=== PATIENT | female | born 1975 | race Caucasian/White ===

== ENCOUNTER 2020-09-25 10:16 | Outpatient (REF) | payer MEDICARE, MEDICAID, SELFPAY ==
--- NOTE | 2020-09-25 | MR_ITS ---
EXAMINATION: MR ABDOMEN WITHOUT CONTRAST CLINICAL INFORMATION: Targeted acute pancreatitis without infection or necrosis. COMPARISON: Ultrasound abdomen 11/24/2018 TECHNIQUE: MR abdomen is performed without gadolinium contrast. Additional MRCP sequence is included. FINDINGS: LUNG BASES: The visualized lung bases are unremarkable. LIVER, GALLBLADDER, AND BILIARY TREE: The liver is normal in size, smooth in contour, and normal in signal. No focal hepatic lesion or biliary ductal dilatation is present. The gallbladder is unremarkable with no evidence of gallbladder wall thickening, or obvious pericholecystic inflammatory changes. The common duct is normal in caliber. No filling defect or stricture or displacement. PANCREAS: The pancreas is normal in size and contour and signal. There is no pancreatic ductal distention. The pancreatic duct is normal in caliber and shows no ectasia, beading, or displacement. No peripancreatic inflammatory changes or retroperitoneal effusion. SPLEEN: Unremarkable. ADRENAL GLANDS: Unremarkable. KIDNEYS AND URETERS: The kidneys are normal in size and shape. No hydronephrosis. No perinephric stranding. GASTROINTESTINAL TRACT: No bowel obstruction. No ascites or fluid collection. ABDOMINAL WALL: No significant hernia is appreciated. LYMPH NODES: No lymphadenopathy. VASCULAR: Unremarkable. OSSEOUS STRUCTURES: Marrow signal normal. MR/MR abdomen wo con IMPRESSION: 1. Unremarkable pancreas. Normal pancreatic duct. No peripancreatic inflammatory changes. 2. No biliary ductal dilatation.
== END 2020-09-25 10:17 | disposition home or self-care (01) ==
LOC: HO.MRI 10:16
PROVIDERS: Visit Provider Internal Medicine Gastroenterology
DX: K85.30 Drug induced acute pancreatitis without necrosis or infection (principal)
CPT/HCPCS: 74181

== ENCOUNTER → 2020-10-26 08:04 | Outpatient (REF) | payer MEDICARE, MEDICAID, SELFPAY ==
--- NOTE | 2020-10-26 | NM_ITS ---
EXAMINATION: RADIONUCLIDE SOLID FOOD GASTRIC EMPTYING 4-HOUR STUDY CLINICAL INFORMATION: Vomiting. COMPARISON: No previous gastric emptying study is available for comparison. TECHNIQUE: A standard meal consisting of 4 oz of Egg Beaters brand equivalent tagged with 800 microcuries Tc-99m Sulfur Colloid, 8 oz water and 2 slices of toast with jelly was administered orally to the patient. Images were obtained using a dual head gamma camera in the anterior and posterior projections over of the stomach immediately post ingestion and at hourly intervals up to 4 hours post ingestion. The anterior and posterior counts at each time interval were averaged using the geometric mean and expressed as percentage of the immediate post ingestion counts. FINDINGS: There is good visualization of activity in the stomach immediately post ingestion. As the study progresses there is visualization of some progressively increasing small bowel activity, but at the end of the study most of the activity is still retained in the stomach at 4 hours. Retention in the stomach at each time interval was: 1 hour 100% (normal 37%-90%) 2 hours 85% (normal 30%-60%) 3 hours 7% 4 hours 51% (normal 0%-10%) NM/NM gastric emptying study IMPRESSION: Abnormal study. There is markedly abnormal retention of solid food in the stomach at 4 hours.
== END ==
LOC: HO.NUCMED 08:04
PROVIDERS: Visit Provider Internal Medicine Gastroenterology
DX: R11.0 Nausea (principal)
CPT/HCPCS: 78264; A9541

== ENCOUNTER 2021-03-24 15:27 | Emergency (ER) | payer MEDICARE, MEDICAID, SELFPAY ==
[2021-03-24 15:34] VITALS: BP 122/80; BP 130/92; PULSE 3; RESP 20; TEMP 36.5; O2SAT 95; BMI 25.0
--- NOTE | 2021-03-24 15:40 | ED_ITS ---
HPI - Overdose General Chief Complaint: ETOH/Substance Use Stated Complaint: overdose/narcan Time Seen by Provider: 03/24/21 15:40 History of Present Illness HPI Narrative: This is 46 years old the female brought here by ambulance she was found unresponsive in the car with heroin in the car, she woke up with a sternal rub, she arrived awake and alert denies SI denies HI. There was a baby 3 years old in the car as well taken by the police MD complaint: accidental overdose Onset (ago): minute(s) (30) Context: Accidental Overdose: wanted to get high Treatments Prior to Arrival: none Related Data Allergies Allergy/AdvReac Type Severity Reaction Status Date / Time acetaminophen [From TYLENOL] Allergy Intermediate HEP C Unverified 07/20/20 18:44 sulfamethoxazole Allergy Intermediate SWELLING Unverified 07/20/20 18:44 [From BACTRIM] trimethoprim [From BACTRIM] Allergy Intermediate SWELLING Unverified 07/20/20 18:44 doxycycline [DOXYCYCLINE] Allergy Mild PROLONGED Unverified 07/20/20 18:44 DIARRHEA levofloxacin [From LEVAQUIN] Allergy Unknown RASH Unverified 07/20/20 18:44 Sulfa (Sulfonamide Allergy Unknown UNKNOWN Unverified 07/20/20 18:44 Antibiotics) [SULFA (SULFONAMIDE ANTIBIOTICS)] Review of Systems Review of Systems: Yes all other systems are reviewed and are negative Cardiovascular: Cardiovascular: Reports no additional cardiovascular complaints Respiratory: Respiratory: Reports no additional respiratory complaints [facility] Social History Social History Advance Directives: No Advance Directives Information Provided: No Physical Exam Vital Signs: Vital Signs: Last Vital Signs Temp 97.7 F 03/24/21 15:34 Pulse 3 L 03/24/21 15:34 Resp 20 03/24/21 15:34 BP 130/92 H 03/24/21 15:34 Pulse Ox 95 03/24/21 15:34 Body Mass Index 25.0 Const: Other: She is awake and alert in not acute distress General: cooperative, alert, awake and anxious; No acute distress Orientation/consciousness: oriented to person, oriented to place, oriented to time and patient oriented x3 HENMT: Head: Yes normal to inspection Eyes: General: appearance normal, both eyes and all related structures Visual De La Vega: normal visual de la vega by confrontation Neck: Neck: Yes normal visual inspection and Yes full ROM Chest: Chest palpation & inspection: normal inspection of the chest and normal palpation of entire chest wall Resp: Effort & Inspection: normal respiratory effort and able to speak in complete sentences Cardio: Jugular venous distension: no JVD Rate: regular rate Rhythm: regular rhythm GI: Inspection: Yes normal to inspection Auscultation: normal bowel sounds Skin: General skin exam: no rashes or lesions noted Rashes: no rashes Neuro: General: oriented to person, oriented to place, oriented to time, patient oriented x3 and moves all extremities Extrem: General: Yes normal to inspection, Yes full ROM and Yes capillary refill normal MDM - Overdose Medical Records Medical records narrative: Patient these no SI no HI does no want detox . At this point will observe the patient for 1 hour if she remains stable she will be discharged home Discharge Plan Discharge Clinical Impression: Opioid abuse Patient Disposition: Home, Self-Care Instructions: Opioid Use Disorder (ED) Interventions: ED Discharge Assessment Last Done: 03/24/21 16:50 Discharge Date/Time: 03/24/21 16:51
== END 2021-03-24 16:51 | disposition home or self-care (01) ==
PROVIDERS: Emergency Provider Emergency Medicine
DX: F11.10 Opioid abuse, uncomplicated (principal); T40.1X1A Poisoning by heroin, accidental (unintentional), initial encounter; R40.4 Transient alteration of awareness; Y92.810 Car as the place of occurrence of the external cause
CPT/HCPCS: 99283

== ENCOUNTER 2021-10-19 09:30 | Outpatient (RCR) | payer MEDICARE, MEDICAID, SELFPAY ==
--- NOTE | 2021-10-17 09:50 | PC.NURSE ---
Patient did not show up to the program this morning. Called patient at 0930 and 0945. Patient did not answer her phone and unable to leave a message as her mailbox is full. Team is aware.
--- NOTE | 2021-10-17 10:21 | PC.NURSE ---
Called Violeta again at 10:00 and 10:15, no answer and unable to leave a message d/t voicemail being full. Called her emergency contact patient's daughter Karishma who stated she spoke to her mother yesterday and she sounded like she was doing well. Karishma stated she will call her mother. Violeta just called me and stated she overslept as she hurt her back and took a muscle relaxer Tizanidine that is prescribed form the hospital, stated she is not used to taking this medicine. Plans on coming to the program tomorrow.
--- NOTE | 2021-10-18 14:10 | PC.NURSE ---
Case opened in treatment team
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
[2021-10-18 15:11] VITALS: BMI 29.9
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
--- NOTE | 2021-10-19 13:35 | PC.NURSE ---
Called clinical director Manisha Lui at [facility] and left several messages on her voicemail to call me back to verify patient medications. Awaiting a call back. Also called Violeta and left a message for her to call me back regarding the need to confirm her medication list. Awaiting a call back.
--- NOTE | 2021-10-22 09:26 | PC.NURSE ---
client called out sick
--- NOTE | 2021-10-22 13:05 | PC.NURSE ---
Patient called out sick today. Unable to reach patients program clinical director Manisha Lloyd to confirm patient medications. Called patient to f/u and patient stated she is at [facility] as she does not feel well. Patient did not sound well and stated she has been coughing and sounded as if she is losing her voice. Patient will keep us updated.
--- NOTE | 2021-10-23 09:30 | PC.NURSE ---
Client did not come in and did not call. I called her and could not leave a message because the mailbox was full.
--- NOTE | 2021-10-23 10:04 | PC.NURSE ---
I called the clients emergency contact, her daughter Karishma, when client did not answer phone call. Karishma states that her mother is very sick. She went to the er yesterday and was dx with MAITE. Karishma hasn't spoke with her yet today. I informed Karishma that if her mom can not attend this week will have to discharge her and she can call for an intake when she is feeling better.
--- NOTE | 2021-10-29 14:13 | PC.NURSE ---
I spoke with the client re absence from the program. She continues to experince symptoms of COVID . I explained that she will be discharge and can call for another intake when she feels better. She agrees with this plan
== END 2021-10-30 07:07 | disposition home or self-care (01) ==
LOC: HO.PHPA 09:30
PROVIDERS: PCP Family Medicine; Visit Provider Psychiatry & Neurology Psychiatry
DX: F33.2 Major depressive disorder, recurrent severe without psychotic features (principal); F43.12 Post-traumatic stress disorder, chronic; F90.9 Attention-deficit hyperactivity disorder, unspecified type; F14.21 Cocaine dependence, in remission; F10.21 Alcohol dependence, in remission; F11.20 Opioid dependence, uncomplicated
CPT/HCPCS: 90791; 90853

== ENCOUNTER 2021-11-28 10:00 | Outpatient (RCR) | payer MEDICARE, MEDICAID, SELFPAY ==
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
[2021-11-07 13:31] VITALS: BMI 29.9
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
--- NOTE | 2021-11-13 09:42 | PC.NURSE ---
The client called out sick
--- NOTE | 2021-11-14 13:18 | HO.PHPPROGNO ---
Subjective Subjective Date of Service: 11/14/21 Reason For Visit: Depression, PTSD Guardianship: No Medical Problems Affecting Mental Status: No Interim History: Client reports she is not doing too good today . When asked to elaborate, she reports it is related to several interpersonal issues in the place where she is living. Client reports she is looking forward to getting to leave house this afternoon, as she has an appointment with suboxone provider. Denies any current thoughts of harm to self or others, no safety concern at this time. Reports Trileptal is making her feel ?tired ?in the morning, requesting did take it all at bedtime. Reports decreased mood lability. Continues with some anxiety and depressive sx. Medication Compliance: Yes Side effects from medications: Yes (sedation r/t am dose of trileptal.) Attending Groups: Yes Review of Systems Acute medical concerns: No Medical Review of Systems: unchanged Review of Systems Review of Systems Yes all other systems are reviewed and are negative Mental Status Exam Mental Status Exam Narrative: Well-developed, well-nourished female, in NAD. No involuntary movements noted, motor activity calm. Patient Appearance: Well Grooomed and Appropriate Patient Orientation: Person, Place, Time and Situation Level of Consciousness: Awake, Appropriate and Alert Patient Behavior: Appropriate, Cooperative and Good Eye Contact Mood Description: Appropriate, Depressed and Anxious Affect Description: Appropriate, Depressed and Anxious Patient Cognition Impaired: No Ability to Follow Directions: Excellent Speech Pattern: Clear, Appropriate, Spontaneous Speech and Coherent Memory Description: Intact Hallucinations: None Delusions: Not Present Thought Process: Intact, Goal Oriented and Linear Thought Content: positive for Intact, positive for Goal Oriented, positive for Linear and positive for Suicidal Ideation (Attempted suicide several months ago, denies any active SI today.) Depressive Symptoms: Increased Anxiety, Diff. Making Decisions, Increased Irritability, Difficulty Sleeping, Feelings of Worthlessness, Feelings of Guilt, Unhappiness, Low Self Esteem and Difficulty Concentrating Judgement: Fair Diagnostics Vital Signs (24Hr): BMI result Body Mass Index 29.9 Assessment & Plan Assessment & Plan (1) Major depressive disorder, recurrent severe without psychotic features: Status: Acute Code(s): F33.2 - Major depressive disorder, recurrent severe without psychotic features Assessment and Plan: Client reports continues with dysphoric mood, does report it is slowly improving. Reports some decrease in mood lability since adding Trileptal. Reports feeling tired in the morning, wishing to have Trileptal switched to bedtime only dosing. Reports continues with interpersonal conflicts, feeling triggered at times in her residential program. Denies any active SI at this time, no safety concern at this time. (2) Post-traumatic stress disorder, chronic: Status: Acute Code(s): F43.12 - Post-traumatic stress disorder, chronic Assessment and Plan: Continues with some PTSD symptoms, including irritability, hypervigilance. Reports she feels she is better able to understand symptoms. (3) Opioid use disorder, severe, in early remission, in controlled environment, dependence: Status: Acute Code(s): F11.21 - Opioid dependence, in remission Assessment and Plan: Continues to work on her sobriety. Receives Suboxone daily, which is working to help reduce cravings and withdrawal symptoms. (4) Alcohol use disorder, severe, in sustained remission, in controlled environment: Status: Acute Code(s): F10.21 - Alcohol dependence, in remission Assessment and Plan: Continues abstinence from alcohol, reports she is currently looking for a new sponsor. Discussed recovery, tools of sobriety, utilizing a support network. (5) Cocaine use disorder, severe, in early remission, in controlled environment: Status: Acute Code(s): F14.21 - Cocaine dependence, in remission Assessment and Plan: Reports continues to work on sobriety regarding cocaine, remains abstinent at this time. Assessment and Plan: Client reports medications appear to be helping somewhat, although she feels her medications need to be increased. She does report Trileptal is making her drowsy in the morning, requesting that full-dose be given at bedtime. She plans to discuss her Abilify as well as ADHD medication with outpatient providers, as she wishes to have both increased. We discussed increasing Abilify while here, and she stated she would prefer to speak with her outpatient provider. PLAN: 1. Change Trileptal from 300 mg in the a.m., 600 mg at bedtime, to full dose being 900 mg at bedtime. Clinical director of her residential program has been notified via secure email of the change. 2. Continue with current plan of care. 3. Follow-up as per protocol. Patient educated on: diagnosis, medication risk/benefits, substance abuse and therapeutic strategies Informed Consent: understands Reason for contiued partial hosp. stay Substantial Risk for: harm to self, inability to function and med/psych decompensation Certification I certify that partial hospital treatment is medically necessary due to the symptoms and problems resulting from the patient's mental illness and the failure to treat the patient at the partial hospital level of care would likely result in the patient requiring inpatient psychiatric care which could not be prevented at a less intensive level of care. I spent ____20__ minutes with the patient and/or on the patient floor today, greater than?50% of which was spent counseling/coordinating care. Discharge Plan Discharge Attending provider: Baldemar Bourgeois Primary Care Provider: Buddy Ag Medications: New oxcarbazepine [Trileptal] 300 mg tablet See Rx Instructions .ROUTE .COMPLEX Qty: 21 RF: 0 No Action clonazepam 0.5 mg Tablet 0.5 mg PO BID RF: 0 buprenorphine-naloxone 8-2 mg Film 1 film SUBLINGUAL BID RF: 0 clonidine HCl 0.1 mg Tablet 0.1 - 0.2 mg PO TID PRN (Reason: Anxiety) RF: 0 gabapentin 600 mg Tablet 600 mg PO TID RF: 0 tizanidine 2 mg Tablet 2 mg PO TID PRN (Reason: Muscle Spasm) RF: 0 clonidine HCl 0.2 mg Tablet 0.2 mg PO TID RF: 0 dextroamphetamine-amphetamine [Adderall XR] 20 mg Capsule,Extended Release 24hr 20 mg PO BID RF: 0 trazodone 100 mg Tablet 200 mg PO BEDTIME RF: 0 pantoprazole 40 mg Tablet,Delayed Release (Dr/Ec) 40 mg PO BID RF: 0 albuterol sulfate [Ventolin HFA] 90 mcg/actuation Hfa Aerosol Inhaler 1 inh INHALATION QID PRN (Reason: Shortness Of Breath) RF: 0 ondansetron 4 mg Tablet,Disintegrating 4 mg PO DAILY PRN (Reason: Nausea) RF: 0 aripiprazole 15 mg Tablet 15 mg PO DAILY RF: 0 budesonide-formoterol [Symbicort] 160-4.5 mcg/actuation Hfa Aerosol Inhaler 2 puff INHALATION BID RF: 0 Referrals: Buddy Ag MD [Primary Care Provider] - 1 Week Stand Alone Forms: Patient Portal Discharge page Telehealth Telehealth Location of provider rendering services: practice address Location of patient: address on file Patient Identification confirmed using: Name, : Yes Telehealth method: video Patient verbally consented to treatment: Yes Patient verbally consented to billing insurance company: Yes Patient informed of any privacy concerns related to visit: Yes Time spent with patient (mins): 20
--- NOTE | 2021-11-22 15:21 | HO.PHPPROGNO ---
Subjective Subjective Date of Service: 11/22/21 Reason For Visit: Depression, PTSD Guardianship: No Medical Problems Affecting Mental Status: No Interim History: Violeta reports feeling ?very depressed today . Denies any thought of harm to self or others, no safety concern at this time. Taking all medications as prescribed. Currently on a taper down with Klonopin and gabapentin. Requesting Wellbutrin. Medication Compliance: Yes Side effects from medications: No Attending Groups: Yes Review of Systems Acute medical concerns: No Medical Review of Systems: unchanged Review of Systems Review of Systems Yes all other systems are reviewed and are negative Constitutional: Reports no additional constitutional complaints Mental Status Exam Mental Status Exam Narrative: Well-developed, well-nourished female, in NAD. No involuntary movements noted, motor activity calm. Patient Appearance: Well Grooomed and Appropriate Patient Orientation: Person, Place, Time and Situation Level of Consciousness: Awake, Appropriate and Alert Patient Behavior: Appropriate, Cooperative and Good Eye Contact Mood Description: Appropriate, Depressed (Reports she feels her depression has worsened, also compulsive eating related to it.) and Anxious Affect Description: Appropriate, Depressed and Anxious Patient Cognition Impaired: No Ability to Follow Directions: Excellent Speech Pattern: Clear, Appropriate, Spontaneous Speech and Coherent Memory Description: Intact Hallucinations: None Delusions: Not Present Thought Process: Intact, Goal Oriented and Linear Thought Content: positive for Intact, positive for Goal Oriented and positive for Linear Depressive Symptoms: Increased Anxiety, Diff. Making Decisions, Increased Irritability, Difficulty Sleeping, Feelings of Worthlessness, Feelings of Guilt and Low Self Esteem Judgement: Fair Diagnostics Vital Signs (24Hr): BMI result Body Mass Index 29.9 Assessment & Plan Assessment & Plan (1) Major depressive disorder, recurrent severe without psychotic features: Status: Acute Code(s): F33.2 - Major depressive disorder, recurrent severe without psychotic features Assessment and Plan: Client reports increased depression along with compulsive eating. Denies any thought of harm to self or others, no safety concern at this time. Requesting Wellbutrin, which she has taken off and on in her past. She reports that she is taking mood stabilizer Trileptal as prescribed, but feels that she needs Wellbutrin to help lift her out of depression. She also continues with trazodone at bedtime. She reports that this is mostly for sleep. (2) Post-traumatic stress disorder, chronic: Status: Acute Code(s): F43.12 - Post-traumatic stress disorder, chronic Assessment and Plan: Continues with PTSD symptoms, reports they are more manageable at this time. (3) Opioid use disorder, severe, in early remission, in controlled environment, dependence: Status: Acute Code(s): F11.21 - Opioid dependence, in remission Assessment and Plan: Continues with Suboxone therapy, maintains abstinence at this time. Reports active in recovery program. (4) Cocaine use disorder, severe, in early remission, in controlled environment: Status: Acute Code(s): F14.21 - Cocaine dependence, in remission Assessment and Plan: Maintained abstinence at this time. Denies any concerns regarding triggers/cravings. (5) Alcohol use disorder, severe, in sustained remission, in controlled environment: Status: Acute Code(s): F10.21 - Alcohol dependence, in remission Assessment and Plan: Remains abstinent at this time, actively engaged in therapy program, including 12 step meetings. (6) ADHD: Status: Acute Code(s): F90.9 - Attention-deficit hyperactivity disorder, unspecified type Assessment and Plan: Currently receives Adderall XR are 20 mg b.i.d.. Reports that is working fairly well. States that she continues to struggle somewhat with attention. Assessment and Plan: Client reports dysphoric mood, compulsive eating related to depression. Requesting that she be re-initiated with Wellbutrin, as this has worked for her in the past. 1. Start Wellbutrin SR 100mg daily. Fourteen day supply sent to pharmacy. 2. Continue with current [facility] plan of care. 3. Discharge when stabilized. Patient educated on: diagnosis, medication risk/benefits, substance abuse and therapeutic strategies Informed Consent: understands Reason for contiued partial hosp. stay Substantial Risk for: harm to self, inability to function and med/psych decompensation Certification I certify that partial hospital treatment is medically necessary due to the symptoms and problems resulting from the patient's mental illness and the failure to treat the patient at the partial hospital level of care would likely result in the patient requiring inpatient psychiatric care which could not be prevented at a less intensive level of care. I spent minutes with the patient and/or on the patient floor today, greater than?50% of which was spent counseling/coordinating care. Discharge Plan Discharge Attending provider: Baldemar Bourgeois Primary Care Provider: Buddy Ag Medications: New oxcarbazepine [Trileptal] 300 mg tablet See Rx Instructions .ROUTE .COMPLEX Qty: 21 RF: 0 bupropion HCl [Wellbutrin SR] 100 mg tablet sustained-release 12 hr 100 mg PO DAILY 14 Days Qty: 14 RF: 0 No Action clonazepam 0.5 mg Tablet 0.5 mg PO BID RF: 0 buprenorphine-naloxone 8-2 mg Film 1 film SUBLINGUAL BID RF: 0 clonidine HCl 0.1 mg Tablet 0.1 - 0.2 mg PO TID PRN (Reason: Anxiety) RF: 0 gabapentin 600 mg Tablet 600 mg PO TID RF: 0 tizanidine 2 mg Tablet 2 mg PO TID PRN (Reason: Muscle Spasm) RF: 0 clonidine HCl 0.2 mg Tablet 0.2 mg PO TID RF: 0 dextroamphetamine-amphetamine [Adderall XR] 20 mg Capsule,Extended Release 24hr 20 mg PO BID RF: 0 trazodone 100 mg Tablet 200 mg PO BEDTIME RF: 0 pantoprazole 40 mg Tablet,Delayed Release (Dr/Ec) 40 mg PO BID RF: 0 albuterol sulfate [Ventolin HFA] 90 mcg/actuation Hfa Aerosol Inhaler 1 inh INHALATION QID PRN (Reason: Shortness Of Breath) RF: 0 ondansetron 4 mg Tablet,Disintegrating 4 mg PO DAILY PRN (Reason: Nausea) RF: 0 aripiprazole 15 mg Tablet 15 mg PO DAILY RF: 0 budesonide-formoterol [Symbicort] 160-4.5 mcg/actuation Hfa Aerosol Inhaler 2 puff INHALATION BID RF: 0 Referrals: Buddy Ag MD [Primary Care Provider] - 1 Week Stand Alone Forms: Patient Portal Discharge page Telehealth Telehealth Location of provider rendering services: practice address Location of patient: address on file Patient Identification confirmed using: Name, : Yes Telehealth method: video Patient verbally consented to treatment: Yes Patient verbally consented to billing insurance company: Yes Patient informed of any privacy concerns related to visit: Yes Time spent with patient (mins): 15
--- NOTE | 2021-11-28 10:07 | PC.NURSE ---
A message was left
--- NOTE | 2021-11-28 10:07 | PC.NURSE ---
left a dc message with Rama BUCHANAN
--- NOTE | 2021-11-28 12:53 | P.PNPSP_ITS ---
Subjective Subjective Date of Service: 11/28/21 Reason For Visit: Depression, PTSD Guardianship: No Medical Problems Affecting Mental Status: No Interim History: Continues with dysphoric mood, although reports much improved since started PHP. Tearful when speaking of daughters. No thoughts of harm to self or others, no safety concerns. Reports meds helping manage symptoms. Started lamotrigine last week. Remains abstinent from alcohol / substances. Utilizing 12-step support network. Medication Compliance: Yes Side effects from medications: No Attending Groups: Yes Review of Systems Acute medical concerns: No Medical Review of Systems: unchanged Review of Systems Review of Systems Yes all other systems are reviewed and are negative Constitutional: Reports no additional constitutional complaints Mental Status Exam Mental Status Exam Narrative: Well-developed, well-nourished female, in NAD. No involuntary movements noted, motor activity calm. Depressed mood and affect, although appears improving. Patient Appearance: Well Grooomed and Appropriate Patient Orientation: Person, Place, Time and Situation Level of Consciousness: Awake, Appropriate and Alert Patient Behavior: Appropriate, Cooperative and Good Eye Contact Mood Description: Appropriate and Depressed Affect Description: Appropriate and Depressed Patient Cognition Impaired: No Ability to Follow Directions: Excellent Speech Pattern: Clear, Appropriate and Coherent Memory Description: Intact Hallucinations: None Delusions: Not Present Thought Process: Intact, Goal Oriented and Linear Thought Content: positive for Intact, positive for Goal Oriented, positive for Linear and positive for Suicidal Ideation Depressive Symptoms: Feelings of Worthlessness, Feelings of Guilt, Unhappiness and Low Self Esteem Judgement: Good Diagnostics Vital Signs (24Hr): BMI result Verdana 4 Body Mass Index Verdana 4 29.9 Verdana 4 Verdana 4 Assessment & Plan Assessment & Plan (1) Major depressive disorder, recurrent severe without psychotic features: Status: Acute Code(s): F33.2 - Major depressive disorder, recurrent severe without psychotic features Assessment and Plan: Continues with dysphoric mood, although reports much improved since started PHP. Tearful when speaking of daughters. No thoughts of harm to self or others, no safety concerns. Reports meds helping manage symptoms. Started lamotrigine last week. Re expressed hope for future, plans to by car this weekend, which will enable her to see her daughters more often. (2) Post-traumatic stress disorder, chronic: Status: Acute Code(s): F43.12 - Post-traumatic stress disorder, chronic (3) Opioid use disorder, severe, in early remission, in controlled environment, dependence: Status: Acute Code(s): F11.21 - Opioid dependence, in remission (4) Alcohol use disorder, severe, in sustained remission, in controlled environment: Status: Acute Code(s): F10.21 - Alcohol dependence, in remission Assessment and Plan: Continues to utilize 12-step support network. (5) Cocaine use disorder, severe, in early remission, in controlled environment: Status: Acute Code(s): F14.21 - Cocaine dependence, in remission Plan 1. Patient appears stable for discharge from [facility]. 2. Patient to follow-up with outpatient providers going forward. 3. No medication refills needed today. Patient educated on: diagnosis, medication risk/benefits, substance abuse and therapeutic strategies Informed Consent: understands Reason for contiued partial hosp. stay Substantial Risk for: stable for discharge Certification I certify that partial hospital treatment is medically necessary due to the symptoms and problems resulting from the patient's mental illness and the failure to treat the patient at the partial hospital level of care would likely result in the patient requiring inpatient psychiatric care which could not be prevented at a less intensive level of care. I spent minutes with the patient and/or on the patient floor today, greater than?50% of which was spent counseling/coordinating care. 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 Medications: New oxcarbazepine [Trileptal] 300 mg tablet See Rx Instructions .ROUTE .COMPLEX Qty: 21 0RF Rx Instructions: 300 mg daily orally in am, and 600mg daily at bedtime. bupropion HCl [Wellbutrin SR] 100 mg tablet sustained-release 12 hr 100 mg PO DAILY 14 Days Qty: 14 0RF No Action clonazepam 0.5 mg Tablet 0.5 mg PO BID 0RF Label Comments: Confirmed medications with patient and patient's program staff Manisha Goins bereavement program coordinator who monitors patient taking medications. buprenorphine-naloxone 8-2 mg Film 1 film SUBLINGUAL BID 0RF clonidine HCl 0.1 mg Tablet 0.1 - 0.2 mg PO TID PRN (Reason: Anxiety) 0RF gabapentin 600 mg Tablet 600 mg PO TID 0RF tizanidine 2 mg Tablet 2 mg PO TID PRN (Reason: Muscle Spasm) 0RF clonidine HCl 0.2 mg Tablet 0.2 mg PO TID 0RF dextroamphetamine-amphetamine [Adderall XR] 20 mg Capsule,Extended Release 24hr 20 mg PO BID 0RF trazodone 100 mg Tablet 200 mg PO BEDTIME 0RF pantoprazole 40 mg Tablet,Delayed Release (Dr/Ec) 40 mg PO BID 0RF albuterol sulfate [Ventolin HFA] 90 mcg/actuation Hfa Aerosol Inhaler 1 inh INHALATION QID PRN (Reason: Shortness Of Breath) 0RF ondansetron 4 mg Tablet,Disintegrating 4 mg PO DAILY PRN (Reason: Nausea) 0RF aripiprazole 15 mg Tablet 15 mg PO DAILY 0RF budesonide-formoterol [Symbicort] 160-4.5 mcg/actuation Hfa Aerosol Inhaler 2 puff INHALATION BID 0RF Referrals: Buddy Ag MD [Primary Care Provider] - 1 Week Stand Alone Forms: Patient Portal Discharge page Telehealth Telehealth Location of provider rendering services: practice address Location of patient: address on file Patient Identification confirmed using: Name, : Yes Telehealth method: video Patient verbally consented to treatment: Yes Patient verbally consented to billing insurance company: Yes Patient informed of any privacy concerns related to visit: Yes Time spent with patient (mins): 20
--- NOTE | 2021-11-28 13:49 | PC.NURSE ---
Called Violeta and left messages with her to call me back regarding her discharge. Have not been able to connect with Violeta as she has left me message to call her back. Awaiting call back from Violeta.
--- NOTE | 2021-11-29 12:37 | PC.NURSE ---
Patient did not return my call to review discharge medications/status.
== END 2021-11-29 07:06 | disposition home or self-care (01) ==
LOC: HO.PHPA 10:00
PROVIDERS: PCP Family Medicine; Visit Provider Psychiatry & Neurology Psychiatry
DX: F33.2 Major depressive disorder, recurrent severe without psychotic features (principal); F43.12 Post-traumatic stress disorder, chronic; F90.9 Attention-deficit hyperactivity disorder, unspecified type; F11.20 Opioid dependence, uncomplicated; F14.21 Cocaine dependence, in remission; F10.21 Alcohol dependence, in remission; Z79.899 Other long term (current) drug therapy
CPT/HCPCS: 90791; 90853

== ENCOUNTER 2025-02-01 18:06 | Emergency (ER) | payer MEDICARE, MEDICAID, SELFPAY ==
--- NOTE | 2025-02-01 18:23 | ED.OVERDOSE ---
HPI - Overdose General Chief Complaint: Overdose Stated Complaint: od, 12 mg narcan Time Seen by Provider: 02/01/25 18:07 Source: patient and EMS Mode of arrival: EMS Limitations: other History of Present Illness ED Provider: Dr. Karena Her HPI Narrative: Patient comes to the emergency room via ambulance. According to EMS, bystanders found the patient overdose in her car. Bystanders gave 4 mg of Narcan . Patient remained unresponsive, when police department arrived, they gave to the patient ate more mg of intranasal Narcan. On arrival to the ED, patient awake, coughing, crying, uncooperative. Patient asked to go to the bathroom, undress herself left for clothes in the bathroom and threw herself neck it on the stretcher. Patient was covered and brought to her room. Patient on arrival noted to have an oxygen saturation in the high 80s. Patient awake, very somnolent but wakes up easily. Related Data Home Medications ?Medication ?Instructions ?Recorded ?Confirmed albuterol sulfate 90 mcg/actuation 1 inh inhalation QID PRN Shortness 11/07/21 11/07/21 aerosol inhaler (Ventolin HFA) Of Breath aripiprazole 15 mg tablet 15 mg PO DAILY 11/07/21 11/07/21 budesonide-formoterol HFA 160 2 puff inhalation BID 11/07/21 11/07/21 mcg-4.5 mcg/actuation aerosol inhaler (Symbicort) buprenorphine 8 mg-naloxone 2 mg 1 film sublingual BID 11/07/21 11/07/21 sublingual film clonazepam 0.5 mg tablet 0.5 mg PO BID 11/07/21 11/07/21 clonidine HCl 0.1 mg tablet 0.1 - 0.2 mg PO TID PRN Anxiety 11/07/21 11/07/21 clonidine HCl 0.2 mg tablet 0.2 mg PO TID 11/07/21 11/07/21 dextroamphetamine-amphetamine ER 20 mg PO BID 11/07/21 11/07/21 20 mg 24hr capsule,extend release (Adderall XR) gabapentin 600 mg tablet 600 mg PO TID 11/07/21 11/07/21 ondansetron 4 mg disintegrating 4 mg PO DAILY PRN Nausea 11/07/21 11/07/21 tablet pantoprazole 40 mg tablet,delayed 40 mg PO BID 11/07/21 11/07/21 release tizanidine 2 mg tablet 2 mg PO TID PRN Muscle Spasm 11/07/21 11/07/21 trazodone 100 mg tablet 200 mg PO BEDTIME 11/07/21 11/07/21 Previous Rx's ?Medication ?Instructions ?Recorded oxcarbazepine 300 mg tablet See Rx Instructions .Route 11/07/21 (Trileptal) .COMPLEX #21 tabs bupropion HCl 100 mg tablet,12 hr 100 mg PO DAILY 14 days #14 tabs 11/22/21 sustained-release (Wellbutrin SR) Allergies Allergy/AdvReac Type Severity Reaction Status Date / Time acetaminophen [From TYLENOL] Allergy Intermediate HEP C Verified 02/01/25 18:27 sulfamethoxazole Allergy Intermediate SWELLING Verified 02/01/25 18:27 [From BACTRIM] trimethoprim [From BACTRIM] Allergy Intermediate SWELLING Verified 02/01/25 18:27 doxycycline [DOXYCYCLINE] Allergy Mild PROLONGED Verified 02/01/25 18:27 DIARRHEA levofloxacin [From LEVAQUIN] Allergy Unknown RASH Verified 02/01/25 18:27 Sulfa (Sulfonamide Allergy Unknown UNKNOWN Verified 02/01/25 18:27 Antibiotics) [SULFA (SULFONAMIDE ANTIBIOTICS)] Review of Systems Review of Systems: Yes Other [facility] Past Medical History Medical History History of hepatitis C Pancreatitis Esophageal stricture HTN (hypertension) Asthma COPD (chronic obstructive pulmonary disease) Gastroparesis Surgical History History of adenoidectomy History of tonsillectomy History of delivery History of bunionectomy Social History Social History Household Members: Other Household Members Other:: residential Recovery Program Patient Tobacco Use Status: Current everyday Tobacco user Tobacco use type: Cigarette Cigarettes Per Day: 10 Advance Directives: No Advance Directives Information Provided: No Do you have a plan to hurt others: No Plan Physical Exam Vital Signs: Vital Signs: Last Vital Signs Temp 97.7 F 02/01/25 18:26 Pulse 97 02/01/25 18:26 Resp 22 H 02/01/25 18:26 BP 137/90 H 02/01/25 18:26 Pulse Ox 92 02/01/25 18:26 O2 Del Method Nasal Cannula 02/01/25 18:26 Oxygen Flow Rate 3 02/01/25 18:26 BMI result Body Mass Index 38.3 Const: Other: Appearance: Alert. combative, crying, trying to punch staff Eyes: Pupils equal, round and reactive to light. ENT: Pharynx normal. Neck: Normal inspection. Neck supple. No lymph nodes noted. No crepitus CVS: Normal heart rate and rhythm. Pulses normal. Normal S1 and S2 Respiratory: No respiratory distress. Breath sounds normal. No Wheezing. No rales Abdomen: Soft and nontender. No rigidity. No distention. Skin: Skin warm and dry. Normal skin color. Normal skin turgor. Extremities: No lower extremity edema. No Lacerations. No Rash Neuro: no slurred speech, cranial nerves 2-12 grossly intact Psych: crying, combative, trying to hit staff Course Course Course Narrative: on arrival, after 12 mg of intranasal Narcan, it was noted the patient's oxygen saturation is in 86% even though the patient is awake. Patient was put on 2 L of nasal cannula. patient combative. Patient got out of her stretcher, walked to a patient's room and stole their food tray , grabbed a bunch of food and started in her mouth. then patient started falling asleep again. Patient did not aspirate. Offered was removed from the patient. At this time, she has been awake enough to eat and is require oxygen to maintain on oxygen saturation above 90. Patient keeps intermittently falling asleep, waking up, crying and got profusely. Medical Decision Making Medical Decision Making [facility] Narrative: at this time, 19:20, patient is awake, alert and oriented x3, ambulatory. Patient refuses any further care patient's vitals are stable, blood pressure 137/90, oxygen saturation 99% on room air, pacing around the emergency room, yelling, belligerent patient declined any information about detox Differential Diagnosis Differential Diagnoses: The differential diagnosis associated with the presentation includes ( polysubstance abuse, alcohol intoxications) Admission/Observation Consideration of admission/observation: Escalation of care including admission/observation considered ( patient was under physician observation waiting for the patient to become sober. Patient declines any further help) Critical Care Time Critical Care Time Critical Care Time: Yes Total Critical Care Time: 60 Attestation: I have personally provided critical care time. Time includes review of lab data, radiology results, discussion with consultants, and monitoring for potential decompensation. Intervention performed as documented. Discharge Plan Discharge Clinical Impression: Drug overdose Patient Disposition: Home, Self-Care Instructions: Adult Overdose (ED) Additional Instructions: you overdose today and almost . Please stop using drugs Overdose You were seen in our Emergency Department for an overdose today. You received narcan in order to reverse the effects of overdose. Narcan only lasts about 45 min to 1 hour in the system. You may have been given narcan to take home with you today, please keep it near you if you are going to use again, so others can use it if needed.? The number one risk for fatal overdose is using alone? Safe [employer] is a 26/05 hotline where you can be on the phone with someone while you use, and they can call for help if they suspect an overdose: [phone] Things to look out for when you leave include severe vomiting or diarrhea, headaches, muscle cramps, fever, coughing, chest pain, or if you feel so short of breath you cannot walk to the bathroom. Please seek care and return any time for worsening symptoms.? You may have been provided with safer injection?items, please take time to take care of YOU and your health. Use new supplies whenever possible to lessen the chances of infections and other illnesses.? If you need more supplies, please go [facility],? [address] [place] [address] OR you can call or text to coordinate delivery of safer supplies. If you decide you want to stop or cut down on how much you?re using, please call the numbers on the list provided to you or you can come to our outpatient Addiction Treatment office [facility] (M-F 9am-5p) [address] [place] [address], [address] [phone] Prescriptions: No Action oxcarbazepine [Trileptal] 300 mg tablet See Rx Instructions .ROUTE .COMPLEX Qty: 21 0RF Rx Instructions: 300 mg daily orally in am, and 600mg daily at bedtime. clonazepam 0.5 mg Tablet 0.5 mg PO BID Patient Comments: Confirmed medications with patient and patient's program staff Manisha Goins system programmer who monitors patient taking medications. buprenorphine-naloxone 8-2 mg Film 1 film SUBLINGUAL BID clonidine HCl 0.1 mg Tablet 0.1 - 0.2 mg PO TID PRN (Reason: Anxiety) gabapentin 600 mg Tablet 600 mg PO TID tizanidine 2 mg Tablet 2 mg PO TID PRN (Reason: Muscle Spasm) clonidine HCl 0.2 mg Tablet 0.2 mg PO TID dextroamphetamine-amphetamine [Adderall XR] 20 mg Capsule,Extended Release 24hr 20 mg PO BID trazodone 100 mg Tablet 200 mg PO BEDTIME pantoprazole 40 mg Tablet,Delayed Release (Dr/Ec) 40 mg PO BID albuterol sulfate [Ventolin HFA] 90 mcg/actuation Hfa Aerosol Inhaler 1 inh INHALATION QID PRN (Reason: Shortness Of Breath) ondansetron 4 mg Tablet,Disintegrating 4 mg PO DAILY PRN (Reason: Nausea) aripiprazole 15 mg Tablet 15 mg PO DAILY budesonide-formoterol [Symbicort] 160-4.5 mcg/actuation Hfa Aerosol Inhaler 2 puff INHALATION BID bupropion HCl [Wellbutrin SR] 100 mg tablet sustained-release 12 hr 100 mg PO DAILY 14 Days Qty: 14 0RF Print Language: Bruneian
[2025-02-01 18:26] VITALS: BP 137/90; PULSE 97; RESP 22; TEMP 36.5; O2SAT 92; BMI 38.3
--- NOTE | 2025-02-01 18:45 | PC.NURSE ---
EMS called discharge door operator to notify patient car was [facility]wed to [facility].
--- NOTE | 2025-02-01 19:08 | PC.NURSE ---
patient yelling out at other patients and being disruptive. pt yelling your not helping me and I need water RN educated patient on current ER admission and that the MD will confirm its safe for her to drink at this time. 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 Pt steady on feet and provided hospital pants d/t hers being saturated with urine and pt given belongings back by security. pt ambulated with steady gait to triage on own.
--- OUTSIDE RECORDS SUMMARY | 2025-02-01 19:16 | XMS_ITS | Patient Health Record ---
Author Organization [facility] Address [address] [place] [id number] Care Team Providers Care Tourist Home Keeper Name Role Phone DUNCAN GIBBS III Primary Care Provider John Negron Jr Unavailable Allergies Allergen (clinical drug ingredient) Drug/Non Drug Allergy documented on EMR Reaction Allergy Type Onset Date Status acetaminophen Tylenol Unknown Drug Allergy Act vanessa Sulfacet-R Unknown Drug Allergy Active Levaquin Unknown Drug Allergy Active Reason For Referral No Information Medications Medication SIG (Take, Route, Frequency, Duration) Notes Start Date End Date Status OXcarbazepine Active cloNIDine HCl Active Methadone HCl 35 mg Active Pantoprazole Sodium 40 MG 1 tablet Orall y Once a day for 30 day(s) 10/31/2020 Active traZODone HCl 150 MG Orally Active Trileptal 900 mg Act vanessa risperiDONE 1.5 mg Orally A ctive Gabapentin 600 MG Orally Ac tive Social History Tobacco Use: Social History Observation Description Date Details (start date - stop date) Current Smoker NA - NA Tobacco Use/Smoking Question Answer Notes Patient is a current smoker When did you start smoking? 17 years old How often do you smoke cigarettes? every day How many cigarettes a day do you smoke? 11-20 How soon after you wake up d o you smoke your first cigarette? within 5 minutes Are you interested in quitting? Thinking about q uitting Additional Findings: Tobacco User Heavy cigarett e smoker (20-39 cigs/day) Alcohol Screen Question Answer Notes Did you have a drink containing alcohol in the p ast year? 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 confirmed Plan Of Treatment Pending Test Test Name Order Date MRI ABD NO CONTRAST (MRCP) 07/31/2020 NUC GASTRIC ANTRUM EMPTYING 10/13/2020 Insurance Providers Payer Name Payer Address Payer Phone Subscriber Number Group Number Insured Name Patient Relationship to Insured Coverage Start Date Coverage End Date MEDICARE OF [place] [address] [place] [address] [phone] [id number] JEREMY ANDRADE Self - patient is the insured MEDICAID OF [facility] [address] [place] [address] [id number] JEREMY ANDRADE Self - patient is the insured Medical (General) History Medical History History ICD Code pancreatitis history of Tylenol hepatotoxicity treate d with Mucomyst asthma substance abuse, heroin and cocaine, sob er x15 months bipolar disorder alcohol abuse, sober x4 years hepatitis C antibody positive, viral carlito d negative Surgical History Surgery Date(Month/Year) tonsillectomy section
--- OUTSIDE RECORDS SUMMARY | 2025-02-01 19:16 | XMS_ITS | Clinical Summary ---
Author Organization [employer] [facility] it Address [address] [place] [address] Care Team Providers Care Nuclear Reactor Technician Name Role Phone Unavailable Primary Care Provider Unavailabl e Social History Tobacco Use Types Packs/Day Years Used Date Smoking Tobacco: Never Assessed Comments Unknown Sex and Gender Information Value Date Recorded Sex Assigned at Not on file Legal Sex Female 1:52 PM EST Gender Identity Not on file Sexual Orientation Not on file Plan of Treatment Health Maintenance Due Date Last Done Comments Breast Cancer Screening 1977 DTaP,Tdap,and Td Vaccines (1 - Tdap) 02/20/1996 Hepatitis B Vaccines (1 of 3 - 19+ 3-dose series) 02/20/1996 Cervical Cancer Screening: P ap Smear 1998 Colorectal Cancer Screening: Colonoscopy 10/01/2022 Depression Screening 10/01/2022 HIV Screening 10/01/2022 Hepatitis C Screening 10/01/2022 Social Influencers of Health Screening 10/01/2022 COVID-19 Vaccine (2023-2 5 season) 2024 Influenza Vaccine (#1) 2024 HIB Vaccines Aged Out No longer eligi ble based on patient's age to complete this topic HPV Vaccines Aged Out No longer eligi ble based on patient's age to complete this topic Hepatitis A Vaccines Aged Out No long er eligible based on patient's age to complete this topic IPV Vaccines Aged Out No longer eligi ble based on patient's age to complete this topic MMR Vaccines Aged Out No longer eligi ble based on patient's age to complete this topic Meningococcal ACWY Vaccine Aged Out N o longer eligible based on patient's age to complete this topic Meningococcal B Vacine Aged Out No lo nger eligible based on patient's age to complete this topic Pneumococcal Vaccine: Pediat rics (0 to 5 Years) and At-Risk Patients (6 to 64 Years) Aged Out No longer eligible b ased on patient's age to complete this topic RSV Immunization Patients Un raciel 20 months Aged Out No longer eligible b ased on patient's age to complete this topic Varicella Vaccines Aged Out No longer eligible based on patient's age to complete this topic
[2025-02-01 19:25] VITALS: BP 0/0; PULSE 0; RESP 0; TEMP -17.7; TEMP 0; O2SAT 0
== END 2025-02-01 19:26 | disposition home or self-care (01) ==
PROVIDERS: Emergency Provider Emergency Medicine; PCP Family Medicine
DX: T50.901A Poisoning by unspecified drugs, medicaments and biological substances, accidental (unintentional), initial encounter (principal); R40.4 Transient alteration of awareness; F19.90 Other psychoactive substance use, unspecified, uncomplicated; Y92.810 Car as the place of occurrence of the external cause
CPT/HCPCS: 99284

== ENCOUNTER 2025-02-01 19:31 | Emergency (ER) | payer MEDICARE, MEDICAID, SELFPAY ==
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
== END 2025-02-01 20:23 | disposition left against medical advice (07) ==
PROVIDERS: Emergency Provider Emergency Medicine; PCP Family Medicine
DX: R45.6 Violent behavior (principal); R45.1 Restlessness and agitation; Z53.21 Procedure and treatment not carried out due to patient leaving prior to being seen by health care provider